=== PATIENT | female | born 1960 | race Asian ===

== ENCOUNTER 2019-02-06 09:03 | Outpatient (CLI) | payer BC ==
[~2019-02-06] VITALS: Ht 157.5 cm; Wt 60.3 kg
--- NOTE | 2019-02-06 14:45 | Consultation ---
DATE OF CONSULTATION: 02/06/2019 GASTROENTEROLOGY CONSULTATION CONSULTING PHYSICIAN: José Luis Johnson M.D. CHIEF COMPLAINT: Referral for screening colonoscopy. HISTORY OF PRESENT ILLNESS: This is a very pleasant 58-year-old female, last colonoscopy over 10 years ago, was referred to us for possible screening colonoscopy. PAST MEDICAL HISTORY: 1. Asthma. 2. Hypertension. PAST SURGICAL HISTORY: History of left ear surgery. MEDICATIONS: Verapamil, vitamin C, and vitamin and also inhaler albuterol. FAMILY HISTORY: Noncontributory. SOCIAL HISTORY: The patient is a social drinker. Denies any IV drug abuse. Denies any cocaine abuse. Denies any tobacco abuse. ALLERGIES: No known drug allergies. REVIEW OF SYSTEMS: A 10-point review of systems was performed and pertinent positives in HPI. PHYSICAL EXAMINATION: VITAL SIGNS: Temperature 98.2, blood pressure is 185/108, pulse of 71, and respirations 20. HEENT: Normocephalic and atraumatic. Sclerae anicteric NECK: Supple. No evidence of lymphadenopathy. CARDIOVASCULAR: Regular rate and rhythm. Plus S1 and S2. No obvious murmur. LUNGS: Clear to auscultation bilaterally. ABDOMEN: Positive bowel sounds. Soft and nontender. No rebound. No guarding. No peritoneal sign. EXTREMITIES: No cyanosis, no clubbing, no edema. ASSESSMENT AND PLAN: The patient is a 58-year-old female, needs a screening colonoscopy given last colonoscopy was over 10 years ago. She has a high blood pressure. Today, her blood pressure is 185/108. The patient was told to go back to Dr. Guan, primary care physician for better blood pressure control. The patient most probably needs adjustment in her medication. She also has history of asthma for which she takes albuterol p.r.n. The patient was given instruction for the colonoscopy and the prep and will be waiting for authorization for the scheduling for colonoscopy. I want to thank Dr. Liang Guan, for this kind referral. José Luis Johnson M.D. DR: MCKENNA JOB#: [id number] CC: Liang Guan M.D.; Fax#: [phone]
[2019-02-06] MEDS ORDERED: VITAMIN E PO (16:23)
[2019-02-06] MEDS ORDERED: VITAMIN C500 M1 ORAL (16:23)
[2019-02-06] MEDS ORDERED: VERAPAMIL ER240 MG ORAL (16:23)
[2019-02-06] MEDS ORDERED: ALBUTEROL SULF8.5 GM INH (16:24)
[2019-02-06 16:25] VITALS: BP 185/108
== END 2019-02-06 11:03 | disposition home or self-care (01) ==
LOC: PAN 09:03
DX: I10 Essential (primary) hypertension (principal); Z79.899 Other long term (current) drug therapy

== ENCOUNTER 2019-03-23 07:56 | Day surgery (SDC) | payer BC ==
[2019-03-23] VITALS (9 sets, daily range): BP systolic 135–159; BP diastolic 77–89
[~2019-03-23] VITALS: Ht 157.5 cm; Wt 59.0 kg
[~2019-03-23 07:56] MED LIST: ALBUTEROL SULF8.5 GM INH; VERAPAMIL ER240 MG ORAL; VITAMIN C500 M1 ORAL; VITAMIN E PO
[2019-03-23] MEDS ORDERED: fentaNYL 100 mcg/2 mL IV ONE (07:57)
[2019-03-23] MEDS ORDERED: ADVAIR 100-501 EACH INH (08:47)
--- NOTE | 2019-03-23 09:19 | Anethesia Preoperative Eval ---
Anesthesia Pre-op PMH/ROS General Date of Evaluation: Mar 23, 2019 Time of Evaluation: 10:05 Anesthesiologist: Shaina Aguayo CRNA ASA Score: ASA 2 Mallampati Score Class I : Soft palate, uvula, fauces, pillars visible Class II: Soft palate, uvula, fauces visible Class III: Soft palate, base of uvula visible Class IV: Only hard plate visible Mallampati Classification: Class II Surgeon: Elizabeth Diagnosis: colon screening Surgical Procedure: colonoscopy Anesthesia History: none Family History: no anesthesia problems Allergies: Coded Allergies: No Known Allergies (Unverified , 02/06/19) Medications: see eMAR Patient NPO?: Yes NPO Date: Mar 23, 2019 NPO Time: 00:00 Past Medical History Cardiovascular: Reports: HTN; Denies: CAD, MD, valve dz, arrhythmia, other Pulmonary: Reports: asthma; Denies: COPD, MARCE, other Gastrointestinal/Genitourinary: Denies: GERD, CRI, ESRD, other Neurologic/Psychiatric: Denies: dementia, CVA, depression/anxiety, TIA, other Endocrine: Denies: DM, hypothyroidism, steroids, other HEENT: Reports: other - sinusitis; Denies: cataract (L), cataract (R), glaucoma, GRAND TRAVERSE (L), GRAND TRAVERSE (R) Hematology/Immune: Denies: anemia, DVT, bleeding disorder, other Musculoskeletal/Integumentary: Denies: OA, RA, DJD, DDD, edema, other PMH Narrative: as noted above PSxH Narrative: sinus surgery Anesthesia Pre-op Phys. Exam Physician Exam Last Vital Signs Date Time Temp Pulse Resp B/P (MAP) Pulse Ox O2 Delivery O2 Flow Rate FiO2 03/23/19 08:53 Room Air 03/23/19 08:50 97.8 64 20 159/88 96 Constitutional: NAD Neurologic: other - alert and oriented Cardiovascular: RRR Respiratory: CTA Gastrointestinal: S/NT/ND Airway Exam Mallampati Score: Class II MO: full Neck: FROM TMD: > 3 FB ROM: full Teeth: missing Dentures: upper - partial Anesthesia Pre-op A/P Risk Assessment & Plan Assessment: ASA 2, ok to proceed Plan: MAC Status Change Before Surgery: No Pre-Antibiotics Given Within 1 Hr of Incision: Shaina Machado CRNA Mar 23, 2019 09:19
--- NOTE | 2019-03-23 09:45 | Pre-Procedure Note/Attestation ---
Pre-Procedure Note/Attestation Complete Prior to Procedure Planned Procedure: not applicable Procedure Narrative: colonoscopy Indications for Procedure Pre-Operative Diagnosis: screening Attestation I attest that I discussed the nature of the procedure; its benefits; risks and complications; and alternatives (and the risks and benefits of such alternatives ), prior to the procedure, with the patient (or the patient's legal contact center representative). I attest that, if there was a reasonable possibility of needing a blood transfusion, the patient (or the patient's legal contact center representative) was given the [facility] standardized written summary, pursuant to the [place] Blood Safety Act ([place] Health and Safety Code # 1645, as amended). I attest that I re-evaluated the patient just prior to the surgery and that there has been no change in the patient's H&P, except as documented below: José Luis Johnson MD Mar 23, 2019 09:45
--- NOTE | 2019-03-23 09:45 | Short Stay Surgery H&P ---
History of Present Illness History of Present Illness Chief Complaint see recent office note HPI Roseann Mcclure is a 58 year old female who was admitted on for Colon Screening Patient History Allergies: Coded Allergies: No Known Allergies (Unverified , 02/06/19) Medication History Scheduled Ascorbic Acid* (Vitamin C*), 500 MG ORAL DAILY, (Reported) Fluticasone/Salmeterol (Advair 100-50 Diskus), 1 PUFF INH NEEDED, (Reported) Verapamil Hcl* (Calan Sr*), 240 MG ORAL DAILY, (Reported) Vitamin E Acid Succinate (Vitamin E), 400 UNIT PO DAILY, (Reported) Discontinued Medications Albuterol Sulfate* (Albuterol Sulfate Mdi*), 2 PUFF INH Q4H, (Reported) Discontinued Reason: Pt stopped taking med Physical Exam Vital Signs Last Vital Signs Date Time Temp Pulse Resp B/P (MAP) Pulse Ox O2 Delivery O2 Flow Rate FiO2 03/23/19 08:53 Room Air 03/23/19 08:50 97.8 64 20 159/88 96 Plan Attestation Are the patient's medical conditions optimized for surgery? José Luis Johnson MD Mar 23, 2019 09:45
[2019-03-23] MEDS ORDERED: Propofol 200mg/20ml IV ONE (10:00)
--- NOTE | 2019-03-23 10:28 | Endoscopy Procedure Note ---
Endoscopy Procedure Note General Indication for Procedure: screening Procedures Performed: colonoscopy Operative Findings/Diagnosis: 2 polyps Specimen: yes Pt Tolerated Procedure Well: Yes Estimated Blood Loss: none Anesthesia Anesthesiologist: kyle Anesthesia: MAC Inserted Devices Implant(s) used?: Yes Quality Quality of Bowel Preparation: Excellent Did scope reach the cecum?: Yes Was there any complications?: No GI Core Measures 50 yrs or older w/o bx or poly: No 10yrs. F/U recommended: Yes If not recommended, why?: Above average risk 18 years or older w/prev. colo: No José Luis Johnson MD Mar 23, 2019 10:28
--- NOTE | 2019-03-23 10:41 | Immediate Post-Op Evaluation ---
Immediate Post-Op Evalulation Immediate Post-Op Evalulation Procedure: colonoscopy Date of Evaluation: Mar 23, 2019 Time of Evaluation: 10:35 IV Fluids: 0.9 NS 400 ml Blood Pressure Systolic: 142 Blood Pressure Diastolic: 79 Pulse Rate: 56 Respiratory Rate: 16 O2 Sat by Pulse Oximetry: 100 Temperature (Fahrenheit): 97.1 Pain Score (1-10): 0 Nausea: No Vomiting: No Complications none Patient Status: awake, patent Hydration Status: adequate Given Within 1 Hr of Incision: Shaina Machado CRNA Mar 23, 2019 10:41
--- NOTE | 2019-03-23 12:48 | 48 Hour Post Anesthesia Eval ---
Post Anesthesia Evaluation Procedure: colonoscopy Date of Evaluation: Mar 23, 2019 Time of Evaluation: 12:47 Blood Pressure Systolic: 144 0: 88 Pulse Rate: 54 Respiratory Rate: 18 Temperature (Fahrenheit): 97.2 O2 Sat by Pulse Oximetry: 98 Airway: patent Nausea: No Vomiting: No Pain Intensity: 0 Hydration Status: adequate Cardiopulmonary Status: stable Mental Status/LOC: patient returned to baseline Follow-up Care/Observations: per GI Post-Anesthesia Complications: none Follow-up care needed: N/A Shaina Aguayo CRNA Mar 23, 2019 12:48
--- NOTE | 2019-03-23 15:15 | Procedure Note ---
DATE OF PROCEDURE: 03/23/2019 SURGEON: José Luis Johnson M.D. ANESTHESIA: Per nurse computer networking instructorShaina. PROCEDURE: Colonoscopy with biopsy. INSTRUMENT: Olympus adult flexible colonoscope. INDICATION: Screening colonoscopy evaluation. REASON FOR PROCEDURE: The procedure, risks, benefits, and possible consequences, including hemorrhage, aspiration, perforation and infection, and alternative treatments, were explained to the patient/legal guardian by Dr. José Luis Johnson and the patient/legal guardian understood and accepted these risks. DESCRIPTION OF PROCEDURE: After informed consent was obtained and the patient was adequately sedated, first rectal exam was performed, which was positive for internal hemorrhoids. Then, the scope was advanced from the rectum into the cecum then subsequently to terminal ileum. Quality of prep was excellent. The patient had two diminutive polyps in the sigmoid and rectosigmoid area, which was removed with the cold biopsy forceps technique. The patient has evidence of diverticulosis, both in the right and left colon, but more prominent in the ascending colon, proximal and also sigmoid colon. Retroflexion of rectum was performed, which showed evidence of medium-sized nonbleeding internal hemorrhoids. SUMMARY OF FINDINGS: 1. Two colonic polyps removed, see above for details. 2. Diverticulosis. 3. Internal hemorrhoids. RECOMMENDATIONS: 1. Follow path. 2. We recommend repeat colonoscopy in 5 years. I want to thank Dr. Liang Guan for this kind referral. José Luis Johnson M.D. DR: MARITZA JOB#: [id number] CC: Liang Guan M.D.; Fax#: [phone]
== END 2019-03-23 12:00 | disposition home or self-care (01) ==
LOC: GAS 07:56
DX: Z12.11 Encounter for screening for malignant neoplasm of colon (principal); K63.5 Polyp of colon; K57.90 Diverticulosis of intestine, part unspecified, without perforation or abscess without bleeding; K64.8 Other hemorrhoids; Z79.899 Other long term (current) drug therapy; I10 Essential (primary) hypertension
CPT/HCPCS: 45380; J2704; J3010; 94003; 94150